=== PATIENT | female | born 1960 | race Caucasian/White ===

== ENCOUNTER 2025-09-30 09:00 | Outpatient (REF) | payer OTHER, SELFPAY ==
--- OUTSIDE RECORDS SUMMARY | 2025-04-03 06:00 | XMS_ITS ---
Author Organization [facility] Address [address] [place] [address] Care Team Providers Care Test Deck Supervisor Name Role Phone Gail Morrison Primary Care Provider [phone] REASON FOR VISIT trouble breathing Encounters Encounter Location Date Provider Diagnosis [facility] [address] [place] [address] 04/03/2025 Gail Morrison Plan Of Treatment No Information Progress Notes * Apryl DAYDOB: (65 yo F)Acc No.[id number]:04/03/2025 Progress Note Patient: Apryl Bhatia Provider: Fabienne Morrison MD :1960 A ge:65 Y S ex:Female Date:04/03/2025 Address:[address], [place], [id number] Subjective: * Chief Complaints: * T rouble breathing * Electronic [place], [id number] on 09/30/2025 at 07:37 AM [facility] Sign off status: Pending * Provider: Fabienne Morrison MD Date: 0 04/03/2025 Generated for Kristy leblanc/Carmel/Ramonita on: 11/30/2024 07:37 AM MST
--- OUTSIDE RECORDS SUMMARY | 2025-05-06 05:30 | XMS_ITS ---
Author Organization [facility] Address [address] [place] [address] Care Team Providers Care Line Department Supervisor Name Role Phone Gail Morrison Primary Care Provider [phone] REASON FOR VISIT lab review Encounters Encounter Location Date Provider Diagnosis [facility] [address] [place] [address] 05/06/2025 Gail Morrison Plan Of Treatment No Information Progress Notes * Apryl DAYDOB: [birth year] (65 yo F)Acc No.[id number]:05/06/2025 Patient: Apryl Bhatia Provider: Fabienne Morrison MD :1960 A ge:65 Y S ex:Female Date:05/06/2025 Address:[address], [place], [id number] Subjective: * Chief Complaints: * L ab review * Electronic [place], [id number] on 09/30/2025 at 07:38 AM [facility] Sign off status: Pending * Provider: Fabienne Morrison MD Date: 0 05/06/2025 Generated for Kristy leblanc/Carmel/Ramonita on: 11/30/2024 07:38 AM [facility]
[2025-09-30 09:12] LABS: MANUAL DIFF FLAG NO
--- OUTSIDE RECORDS SUMMARY | 2025-09-30 09:38 | XMS_ITS | Patient Health Record ---
Author Organization [facility] Address [address] [facility] [address] [place] [address] Care Team Providers Care Scientist/Engineer Name Role Phone Gail Morrison Primary Care Provider Erica Kendrick Unavailable [phone] Anca Urrutia Unavailable [phone] Allergies No Known Allergies Results Component Value Reference Range Notes Coccidioides Abs, IgG/IgM, E IA (L) ([id number]) Reviewed date:04/27/2025 11:20:34 AM Interpretation:Negative Performing Lab: Notes/Report: Coccidioides Ab, IgG, EIA 0.3 Negative <1.0 Indeterminate 1.0-1.4 Positive >1.4 Coccidioides Ab, IgM, EIA 0.3 Positive >1.4 Negative <1.0 Indeterminate 1.0-1.4 Reason For Referral Reason 04/09...1st // Explain ed in detail the reason for referral, the health benefits and potential consequences of missing this specialist appointment. Pt advised to contact us if he/she does not hear about appt to see specialist in the next 2 weeks Please fax over consult notes to [phone] Diagnosis 1 COPD exacerbation (J 44.1) [facility] Referring Provider First Name Gail Referring Provider Last Name Tamiko Referring Provider [facility] Clinical Notes Roro Grewal 10:40:23 AM > Referral and MR faxed, a txt was sent to patient, PM [address], [address] [place] [address] Fax: Referrals: [phone] Stephanie 04/17/2025 12:29:17 PM > gildardo ring from office, referral rcvd. pt self sched 04/20 @ 1:45pm Referral Priority Routine Referral Appointment Date 04/20/2025 Medications Medication SIG (Take, Route, Frequency, Duration) Notes Start Date End Date Status Nortriptyline HCl 75 MG Capsule TAKE 1 CAPSULE BY MOUTH DAILY; Duration: 90 days Active Gabapentin 100 MG Capsule 1 capsule Orally Three times a day; Duration: 90 days 06/26/2024 Active Flonase Allergy Relief 50 MCG/ACT Suspension 1 spray in each nostril Nasally Once a day; Duration: 30 days 04/23/2025 Active Stiolto Respimat 2.5-2.5 MCG/ACT Aerosol Solution 2 puffs Inhalation Once a day 04/23/2025 Active Atorvastatin Calcium 20 MG Tablet TAKE 1 TABLET BY MOUTH DAILY; Duration: 90 Active Aspirin 81 81 MG Tablet Chewable 1 tablet Orally Once a day 06/26/2024 Active Albuterol Sulfate HFA 108 (90 Base) MCG/ACT Aerosol Solution 1 puff as needed Inhalation every 4 hrs 06/26/2024 Active Trelegy Ellipta 200-62.5-25 MCG/ACT Aerosol Powder Breath Activated INHALE 1 PUFF BY MOUTH DAILY; Duration: 60 days Not-Taking/PRN Immunizations Vaccine Route Administration Date Status Comme nts RSV ADULT (Abrysvo) 0.5 mL, 60 years and older Unknown 08/14/2024 Administered Social History Tobacco Use: Social History Observation Description Date Details (start date - stop date) Current Smoker NA - NA Social History Social Determinants of Healt h Social Info Question Answer Notes MA - SOGI Sexual Orientation Straight or H eterosexual (attracted to opposite sex) Gender Identity Female Advance Directive [facility] complies with p atients' wishes concerning extent of care. Do you have an advance directive? Yes, but a copy has not been presented (debbie Ledbetter no se hubbard presentado brayden copia) MA - Smoke/Tobacco Exposure: No MA - Drug Screening Have you used drugs other than those for medical reasons in the past 12 months? Yes Heroin? No Cocaine? No Are you in a treatment program? No MA - Occupational History Current employment or previo us employment: Unemployed During your work history, have you ever been exp osed to: Indicate yes/no Metals No Dust or Fibers No Chemicals No Fumes No Radiation No Biologic Agents No Loud noise, vibration, extreme heat or cold No MA - Oral and Written Communication Needs Do you have any of these disabilities? Hearing Right ear Literacy Needs Level of education [employer] Completed high school MA - SDOH Screenings Date 05/06/2025 Homeless No Kinta No MA - Health Literacy Is medical informat ion ever difficult for you to understand? No Do you ever ask family/friends to help you under stand medical information? No Sexual History: Social Info Question Answer Notes SOGI Sexual Orientation: Straight or Heterosex ual Gender Identity: Female Sexual History Had sex in the past 12 months (vaginal, oral, or anal)? No Have you ever had a Sexually transmitted disease ? No Drugs/Alcohol: Social Info Question Answer Notes Drugs Have you used drugs other than those for medical reasons in the past 12 months? Yes Marijuana? Yes Drug/Alcohol: Social Info Question Answer Notes AUDIT-C (Standard) Did you have a drink containing alcohol in the past year? No Points 0 Interpretation Negative Tobacco Use: Social Info Question Answer Notes Tobacco Control (Standard) Tobacco use: Current smoker How often do you smoke cigarettes? Every day How many cigarettes a day do you smoke? 11-20 How soon after you wake up do you smoke your first cigarette? 6-30 minutes Are you interested in quitting? Thinking about quitting Additional Findings: Tobacco user Modera te cigarette smoker (10-19 cigs/day) Completed Date 06/26/2024 Problems Problem Type SNOMED Code ICD Code Onset Dates Problem Status W/U Status Risk Notes Problem Tobacco use (936541686) Tobacco use (Z72.0) 05/06/20 25 Active confirmed Problem Solitary nodule of lung (833146670) Lung nodule (R91.1) Active confirmed Problem Anxiety disorder (977605702) Anxiety disorder, unspecified (F41.9) Active confirmed Problem Peripheral artery disease (850397867) Peripheral artery disease (I73.9) Active confirmed Problem Chronic obstructive lung disease (22166087) COPD without exacerbation (J44.9) Active confirmed Problem Hyperlipidemia (91680208) Other hyperlipidemia (E78.49) Active confirmed Vital Signs Heart Rate 93 /min 04/23/2025 Vital Signs com pleted, demographics/pharmacy verified by: Albania Jacobs 04/23/2025 08:49:45 AM MST > Temperature 98.0 degrees Fahrenheit 04/23/2025 Vital Signs completed, demographics/pharmacy verified by: Albania Jacobs 04/23/2025 08:49:45 AM MST > Respiratory Rate 18 /min 04/23/2025 Vital Signs completed, demographics/pharmacy verified by: Albania Jacobs 04/23/2025 08:49:45 AM MST > Blood pressure diastolic 71 mm Hg 04/23/2025 Vital Signs complete d, demographics/pharmacy verified by: Albania Jacobs 04/23/2025 08:49:45 AM MST > Oximetry 92 % 04/23/2025 Vital Signs com pleted, demographics/pharmacy verified by: Albania Jacobs 04/23/2025 08:49:45 AM MST > Height-cm 172.72 cm 04/23/2025 Vital Signs com pleted, demographics/pharmacy verified by: Alabnia Jacobs 04/23/2025 08:49:45 AM MST > Weight-kg 38.67 kg 04/23/2025 Vital Signs com pleted, demographics/pharmacy verified by: Albania Jacobs 04/23/2025 08:49:45 AM MST > Height 68 in 04/23/2025 Vital Signs com pleted, demographics/pharmacy verified by: Albania Jacobs 04/23/2025 08:49:45 AM MST > Blood pressure systolic 146 mm Hg 04/23/2025 Vital Signs complete d, demographics/pharmacy verified by: Albania Jacobs 04/23/2025 08:49:45 AM MST > Weight 85 lbs 4 oz lbs 04/23/2025 Vital Signs completed, demographics/pharmacy verified by: Albania Jacobs 04/23/2025 08:49:45 AM MST > BMI 12.96 kg/m2 04/23/2025 Vital Signs com pleted, demographics/pharmacy verified by: Albania Jacobs 04/23/2025 08:49:45 AM MST > Encounters Encounter Location Date Provider Diagnosis [facility] [address] [place] [address] 03/31/2025 [facility] [address] [place] [address] 03/31/2025 Gail Morrison Neuropathic pain M79 .2 [facility] [address] [place] [address] 08/07/2025 Erica Kendrick [facility] [address] [facility] [place] [address] [facility] [address] [facility] [place] [address] [facility]25 [facility] [address] [place] [place] [place] [address] 09/22/2025 [facility] [address] [facility] [place] [address] 04/23/2025 Gail Morrison Tobacco use Z72.0 ; Encounter for tobacco use cessation counseling Z71.6 ; History of COPD Z87.09 ; Neuropathic pain M79.2 ; Lung nodule R91.1 and Post-nasal drip R09.82 [facility] [address] [place] [address] 04/02/2025 Gail Morrison COPD exacerbation J44.1 [facility] [address] [place] [address] 05/06/2025 Gail Morrison Lung nodule R91.1 ; Tobacco use Z72.0 and Encounter for tobacco use cessation counseling Z71.6 Assessments Encounter Date Diagnosis (ICD Code) Assessment Notes Treatment Notes Treatment Clinical Notes Section Notes 03/31/2025 Neuropathic pain (ICD-10 - M79.2) 05/06/2025 Lung nodule (ICD-10 - R91.1) CXR showed irregular left apicalpleural thickening associated with mild left apical infiltrate. It also showed subcentimeter dense nodules in the right upper lobe suggesting probable calcified granuloma. CT chest was recommended. Valley fever results are negative. Pt got CT chest done today. She will follow with her director of industrial relations. 04/23/2025 Tobacco use (ICD-10 - Z72.0) 04/23/2025 Encounter for tobacco use cessation counseling (ICD-10 - Z71.6) 04/02/2025 COPD exacerbation (ICD-10 - J44.1) Since patient is short of breath and has Oxygen saturation ranging 90-91% at rest , will send patient to ER 04/23/2025 History of COPD (ICD-10 - Z87.09) Pt has been following with Local [employer]. She will be getting CT chest ordered by her Local Truck Driver. 05/06/2025 Tobacco use (ICD-10 - Z72.0) 05/06/2025 Encounter for tobacco use cessation counseling (ICD-10 - Z71.6) 04/23/2025 Neuropathic pain (ICD-10 - M79.2) 04/23/2025 Lung nodule (ICD-10 - R91.1) CXR showed irregular left apicalpleural thickening associated with mild left apical infiltrate. It also showed subcentimeter dense nodules in the right upper lobe suggesting probable calcified granuloma. CT chest was recommended. 04/23/2025 Post-nasal drip (ICD-10 - R09.82) Plan Of Treatment Pending Test Test Name Order Date CMP14+CBC/D/Plt (L) ([id number]) 04/23/2025 Insurance Providers Payer Name Payer Address Payer Phone Subscriber Number Group Number Insured Name Patient Relationship to Insured Coverage Start Date Coverage End Date [facility] [address] [place], [place] [id number] Apryl Day Self - patient is the insured 4 [facility] [address] [place] [address] [id number] Cristy Dayred Self - patient is the insured 4 Medicare Part A and B MM [address] [place] [address] [phone] [id number] Cristy Dayred Self - patient is the insured 4 [employer] [facility] [address] [place] [address] [phone] [id number] Cristy Dayred Self - patient is the insured Medical (General) History Medical History History ICD Code COPD Damaged Nerves peripheral artery disease Surgical History Surgery Date(Month/Year) tubal ligation 1989 1979
[2025-09-30 10:01] LABS: Hematocrit 39.5 % (37.0-47.0); Hemoglobin 12.8 g/dl (12.0-16.0); Imm Gran Abs Auto 0.02 X10*3/uL (0.00-0.03); Imm Gran Pct Auto 0.2 % (0.0-0.4); Lymphocytes Absolute Auto 2.4 X10*3/uL (1.2-4.9); Mean Corpuscular HGB Conc 32.4 g/dl (31.0-35.0); Mean Corpuscular Hemoglobin 29.8 pg (27.0-33.0); Mean Corpuscular Volume 92.1 fL (80.0-98.0); NRBC Abs Auto 0.000 X10*3/uL (0.0-0.012); NRBC Pct Auto 0.0 /100WBC (0.0-0.2); Platelet Count 445 X10*3/uL (160-400); Red Blood Count 4.29 X10*6/uL (4.20-5.50); White Blood Count 9.4 X10*3/uL (4.8-10.8)
[2025-09-30 11:24] LABS: Alanine Aminotransferase 8 U/L (0-31); Albumin Level 3.9 g/dL (3.5-5.0); Alkaline Phosphatase 84 U/L (39-117); Anion Gap 11 (12-20); Aspartate Amino Transferase 15 U/L (5-31); Blood Urea Nitrogen 13 mg/dL (9-16); Calcium 9.7 mg/dL (8.4-10.2); Carbon Dioxide 29 mmol/L (22-29); Chloride 104 mmol/L (96-108); Cholesterol 146 mg/dL (<200); Estimated Glomerular Filt Rate > 60; HDL Cholesterol 69 mg/dL (>40); Potassium 3.9 mmol/L (3.3-5.1); Sodium 140 mmol/L (135-145); Total Protein 7.9 g/dL (6.5-8.0); Triglycerides 76 mg/dL (<150)
[2025-09-30 11:48] LABS: Reflex LDLD? No
== END 2025-09-30 09:01 | disposition home or self-care (01) ==
LOC: HO.LAB 09:00
PROVIDERS: PCP Student in an Organized Health Care Education/Training Program; Visit Provider Student in an Organized Health Care Education/Training Program
DX: Z00.00 Encounter for general adult medical examination without abnormal findings (principal); Z13.1 Encounter for screening for diabetes mellitus; E78.5 Hyperlipidemia, unspecified
CPT/HCPCS: 36415; 80053; 80061; 83036; 85025

== ENCOUNTER → 2025-10-21 09:18 | Outpatient (AMB) | payer OTHER, SELFPAY ==
--- OUTSIDE RECORDS SUMMARY | 2025-04-03 06:00 | XMS_ITS ---
Author Organization [facility] Address [address] [place] [address] Care Team Providers Care Seamless Tube Drawer Name Role Phone Gail Morrison Primary Care Provider REASON FOR VISIT trouble breathing Encounters Encounter Location Date Provider Diagnosis [facility] [address] [place] [address] 04/03/2025 Gail Morrison Plan Of Treatment No Information Progress Notes * Apryl DAYDOB: (65 yo F)Acc No.[id number]:04/03/2025 Progress Note Patient: Apryl Bhatia Provider: Fabienne Morrison MD :1960 A ge:65 Y S ex:Female Date:04/03/2025 Address:[address], [place], [id number] Subjective: * Chief Complaints: * T rouble breathing * Electronic [place], [id number] on 10/21/2025 at 08:24 AM [facility] Sign off status: Pending * Provider: Fabienne Morrison MD Date: 0 04/03/2025 Generated for Kristy leblanc/Carmel/Ramonita on: 1 12/22/2024 08:24 AM [facility]
--- OUTSIDE RECORDS SUMMARY | 2025-05-06 05:30 | XMS_ITS ---
Author Organization [facility] Address [address] [place] [address] Care Team Providers Care Geophysical Prospecting Surveyor Name Role Phone Gail Morrison Primary Care Provider REASON FOR VISIT lab review Encounters Encounter Location Date Provider Diagnosis [facility] [address] [place] [address] 05/06/2025 Gail Morrison Plan Of Treatment No Information Progress Notes * Apryl DAYDOB: [birth year] (65 yo F)Acc No.[id number]:05/06/2025 Patient: Apryl Bhatia Provider: Fabienne Morrison MD :1960 A ge:65 Y S ex:Female Date:05/06/2025 Address:[address], [place], [id number] Subjective: * Chief Complaints: * L ab review * [place], [id number] on 10/21/2025 at 08:25 AM [facility] Sign off status: Pending * Provider: Fabienne Morrison MD Date: 0 05/06/2025 Generated for Kristy leblanc/Carmel/Ramonita on: 12/22/2024 08:25 AM [facility]
[2025-10-21 09:24] VITALS: BP 110/68; PULSE 108; O2SAT 97; BMI 14.5
--- NOTE | 2025-10-21 09:24 | MHC.OFFVIS ---
Vital Signs 10/21/25 09:24 Height 5 ft 8 in Weight 95 lb 8 oz BMI 14.5 BP 110/68 Blood Pressure Location Rt brachial Position Sitting Pulse 108 H Pulse Source Pulse Oximeter Pulse Oximetry (%) 97 Oxygen Delivery Method Nasal Cannula Oxygen Flow Rate 1 Intake Visit Reasons: COPD Allergies Seasonal Allergies Allergy (Severe, Verified 10/21/25 09:29) Sneezing HPI HPI COPD: Details: Apryl is a pleasant 65 year old female former 40 pack year smoker, quit 08/29 presenting for pulmonology follow-up for a recently diagnosed mycobacterial lung infection and management of severe COPD. She was recently in [place] where her PCP referred her to the emergency room for worsening COPD symptoms, where a chest X-ray revealed a nodule and a mass. She subsequently underwent bronchoscopy which was negative for malignancy but showed a MAC infection. The patient was hospitalized in August and was treated with IV antibiotics for one week, followed by three weeks of IV antibiotics in a rehab facility. She was then transitioned to a three-drug oral regimen of azithromycin, ethambutol, and rifampin for a presumed MAC infection and has been tolerating them well for two months. She was under the care of pulmonary in [place], Toshia León NP as well as [facility] in [place]. Of note, patient with h/o childhood Valley fever and recent labs negative. The patient was diagnosed with COPD a couple of years ago, and spirometry in July of this year showed severe COPD. She has a history of recurrent pneumonia, with two episodes last year. She began using supplemental oxygen following her recent hospitalization and is on 1.5 L/min at home and 1 L/min via a portable device, reporting oxygen saturations as low as 86-87% prior to her hospitalization. The patient has a smoking history of one pack per day since age 17 but quit on August 17. She experienced significant weight loss, with her weight dropping to 83 pounds during her illness, and is now using nutritional shakes. She denies a history of kidney or liver problems, but recent labs from her PCP showed a slightly elevated platelet count and will have subsequent labs to further evaluate. Diagnosis of Chronic Obstructive Pulmonary Disease (COPD) a couple of years ago; a pulmonary function test in April 2023 confirmed severe COPD. - History of recurrent pneumonia, including two episodes in the past year (September and December). - Tobacco use history of one pack per day since age 17; quit smoking on August 17. - Recent emergency room visit in [place] led to a chest X-ray that revealed a nodule and a mass. - Bronchoscopy results were non-cancerous but showed a MAC infection. - A CT scan in May showed a 2.4 x 1.7 x 1.5 cm right upper lobe lesion and a large left upper lobe cavitary lesion. - PET scan was performed in June, prior to starting antibiotic therapy noting FDG activity and enlarging lesions. - Initiated supplemental oxygen therapy in August. - Current medications include Trelegy, Singulair, albuterol nebulizer, and a three-drug regimen for MAC infection. - No history of occupational exposures to chemicals, factory work, or asbestos. [facility] Medical History (Updated 10/21/25 @ 17:15 by Johanny Perez NP) COPD (chronic obstructive pulmonary disease) Social History Alcohol intake: never Patient Tobacco Use Status: Former Tobacco user Tobacco use type: Cigarette e-Cigarette/Vaping Use: Never Used Current occupational status: disabled Cognitive needs: No Hearing needs: No Vision needs: Yes Review of Systems Narrative Const Denies chills, Denies excessive sweating, Denies fever(s), Denies headache(s) and Denies night sweats Eyes Denies dry eyes, Denies irritation and Denies itchy eyes ENT Reports Normal hearing present, Denies headache(s), Denies nasal congestion, Denies nasal discharge, Denies post nasal drip and Denies sore throat Card Denies chest pain, Denies chest pain at rest, Denies chest pain with activity, Denies claudication, Denies leg edema, Denies orthopnea and Denies paroxysmal nocturnal dyspnea Resp Denies chest congestion, Denies excessive phlegm production, Denies pain on inspiration, Denies pain with cough and Denies stridor Musc Denies myalgias Neuro Reports Normal hearing present and Denies headache(s) Endo Denies excessive sweating Andrews/Lymph Denies lymphadenopathy Aller/Immun Denies itchy eyes and Denies seasonal rhinorrhea Physical Exam Exam Exam: Vital Signs: Last Vital Signs Pulse 108 H 10/21/25 09:24 BP 110/68 10/21/25 09:24 Pulse Ox 97 10/21/25 09:24 Oxygen Delivery Method Nasal Cannula 10/21/25 09:24 Oxygen Flow Rate 1 10/21/25 09:24 BMI result Body Mass Index 14.5 Const General: cooperative, healthy appearing, comfortable, no acute distress, well developed and alert Orientation/consciousness: patient oriented x3 HEENT Head: Yes normal to inspection, Yes normocephalic and Yes atraumatic Ears: hearing grossly normal bilaterally and external ears normal Eyes General: appearance normal, both eyes and all related structures Eyelids: Yes eyelids normal Sclerae: sclerae normal EOM: EOMs intact bilaterally Neck Neck: Yes normal visual inspection and Yes no lymphadenopathy Lymphatic: no lymphadenopathy noted Chest Chest palpation & inspection: normal inspection of the chest Resp Effort & Inspection: normal respiratory effort, able to speak in complete sentences, no audible wheezes, no cough, no stridor, not tachypneic, no tripod positioning and no use of accessory muscles Auscultation: diminished lung sounds Cardio Jugular venous distension: no JVD Rate: regular rate Rhythm: regular rhythm Skin Other: warm, dry General skin exam: no rashes or lesions noted Neuro General: patient oriented x3 Cranial nerves: Yes Normal hearing present Cognition (Neuro): normal cognition Gait exam (Neuro): Normal gait present Extrem General: Yes normal to inspection, Yes capillary refill normal, Yes no clubbing, cyanosis or edema and Yes no pedal edema Psych Appearance: grossly normal and well kempt Speech and movement: Normal speech and movement present and Clear speech present Affect: normal affect Attitude: cooperative Thought process: Normal thought process present Thought content: Normal thought content present Insight: Good insight present (Psych) Judgement: Good judgement present (Psych) Assessment & Plan Assessment & Plan (1) 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: Code(s): A31.0 - Pulmonary mycobacterial infection Category: Medical (2) COPD (chronic obstructive pulmonary disease): Code(s): J44.9 - Chronic obstructive pulmonary disease, unspecified Category: Medical Qualifiers: COPD type: unspecified COPD Qualified Code(s): J44.9 - Chronic obstructive pulmonary disease, unspecified (3) Hypoxia: Code(s): R09.02 - Hypoxemia Category: Medical (4) Multiple pulmonary nodules: Code(s): R91.8 - Other nonspecific abnormal finding of lung field Category: Medical Plan Reviewed the patient's complex history regarding her recent diagnosis of a mycobacterial lung infection, which is being treated with a year-long, three-drug regimen. Discussed the importance of continued medication adherence and monitoring for potential side effects. 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 Labs will be monitored to follow kidney and liver function.The patient is tolerating well, approximately two months into her treatment course. She will continue this regimen with the goal of completing a one-year course, however current regimen frequency and dosing falls outside standard dosing. Will reach out to prescribing office to confirm dosing and pathology. An urgent chest CT scan without contrast will be ordered to re-evaluate the size of her lung nodules and cavitary lesions and assess for response to therapy. The patient's dyspnea is relatively stable, and her cough has improved but persists. She will continue her current maintenance therapy with Trelegy and Singulair, along with her albuterol nebulizer for rescue. A prescription for a flutter valve will be sent to aid in airway clearance, to be used twice daily after nebulizer treatments. She will continue to use supplemental oxygen as needed to maintain saturations above 90% and will monitor her levels at home. No repeat pulmonary function testing is needed at this time. The patient successfully quit smoking on August 17. The importance of continued abstinence from smoking was emphasized, particularly for healing her current infection and for her overall lung health. The patient has experienced significant weight loss, with the lowest weight 83 pounds during her illness, and is using nutritional supplements. A referral will be placed to a supervisor rice milling to address her nutritional status, although this may need to be formally initiated by her primary care provider for insurance purposes. We scheduled a follow-up appointment for the end of November to review the results of her imaging. All questions were answered and patient is in agreement of plan. Patient Instructions - Continue taking your three antibiotic pills (azithromycin, ethambutol, rifampin) every day as prescribed for your lung infection. - Continue using your Trelegy inhaler and taking your Singulair pill daily. - We are prescribing a flutter valve device. Use this device twice a day after using your nebulizer to help clear mucus. Blow into it three times, then cough three times. - Please go to [facility] for a walk-in EKG (heart tracing) within the next few days. - You will receive a call to schedule a CT scan of your chest. We are ordering this urgently. If you do not receive a call within one week, please contact our office. - It is very important that you continue to not smoke. - Use your oxygen at home to keep your oxygen level above 90%. If it often drops into the 80s or your breathing gets worse, please call our office. - Schedule an appointment to see your eye doctor. - We have scheduled a follow-up appointment for you at the end of November to go over your test results. Patient was informed and verbally consented to the use of an ambient scribe for clinic note documentation during this visit. 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
--- OUTSIDE RECORDS SUMMARY | 2025-10-21 10:25 | XMS_ITS | Patient Health Record ---
Author Organization [facility] Address [address] [place] [address] Care Team Providers Care Forging Die Sinker Name Role Phone Gail Morrison Primary Care Provider Erica Kendrick Unavailable [phone] Anca Urrutia Unavailable [phone] Allergies No Known Allergies Results Component Value Reference Range Notes Coccidioides Abs, IgG/IgM, E IA (L) ([id number]) Reviewed date:04/27/2025 11:20:34 AM Interpretation:Negative Performing Lab: [...] weeks Please fax over consult notes to [phone] Diagnosis 1 COPD exacerbation (J 44.1) [facility] Serena actice Referring Provider First Name Gail Referring Provider Last Name Tamiko Referring Provider Speciality Family Pra ctice [facility] Special[facility] Pul[facility] Clinical Notes Roro Grewal 10:40:23 AM > Referral and MR faxed, a txt was sent to patient, PM [phone], [address] [place] [address] Fax: Referrals: [phone] Stephanie 04/17/2025 12:29:17 PM > gildardo ring [...] opposite sex) Gender Identity Female Advance Directive [facility] complies with p atients' wishes concerning extent [...] - SDOH Screenings Date 05/06/2025 Homeless No Simpson No MA - Health Literacy Is medical [...] W/U Status Risk Notes Problem Tobacco use (160397399) Tobacco use (Z72.0) 05/06/20 25 Active confirmed Problem Solitary nodule of lung (650245498) Lung nodule (R91.1) Active confirmed Problem Anxiety disorder (176830845) Anxiety disorder, unspecified (F41.9) Active confirmed Problem Peripheral artery disease (431904378) Peripheral artery disease (I73.9) Active confirmed Problem Chronic obstructive lung disease (78632179) COPD without exacerbation (J44.9) Active confirmed Problem Hyperlipidemia (63782997) Other hyperlipidemia (E78.49) Active confirmed Vital Signs [...] Albania Jacobs 04/23/2025 08:49:45 AM MST > Weight-kg [...] > Encounters Encounter Location Date Provider Diagnosis [facility] [address] [place] [address] 03/31/2025 [facility] [address] [place] [address] 03/31/2025 Gail Morrison Neuropathic pain M79 .2 [facility] [address] [facility] [place] [address] 08/07/2025 Erica Kendrick [facility] [address] [place] [facility] [place] [address] [facility] [address] [place] [facility] [place] [address] 09/[facility]25 [facility] [address] [place] [facility] [place] [address] 09/22/2025 [facility] [address] [place] [facility] [place] [address] 04/23/2025 Gail Morrison Tobacco use Z72.0 ; Encounter for tobacco use cessation counseling Z71.6 ; History of COPD Z87.09 ; Neuropathic pain M79.2 ; Lung nodule R91.1 and Post-nasal drip R09.82 [facility] [address] [facility] [place] [address] 04/02/2025 Gail Morrison COPD exacerbation J44.1 [facility] [address] [facility] [place] [address] 05/06/2025 Gail Morrison Lung nodule R91.1 ; Tobacco use Z72.0 and Encounter for tobacco use cessation counseling Z71.6 Assessments Encounter Date Diagnosis (ICD Code) Assessment Notes Treatment Notes Treatment Clinical Notes Section Notes 05/06/2025 Lung nodule (ICD-10 - R91.1) CXR showed irregular left apicalpleural thickening associated with mild left apical infiltrate. It also showed subcentimeter dense nodules in the right upper lobe suggesting probable calcified granuloma. CT chest was recommended. Valley fever results are negative. Pt got CT chest done today. 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 04/23/2025 Tobacco use (ICD-10 - Z72.0) 04/23/2025 Encounter for tobacco use cessation counseling (ICD-10 - Z71.6) 04/02/2025 COPD exacerbation (ICD-10 - J44.1) Since patient is short of breath and has Oxygen saturation ranging 90-91% at rest , will send patient to ER 03/31/2025 Neuropathic pain (ICD-10 - M79.2) 04/23/2025 History of COPD (ICD-10 - Z87.09) Pt has been following with Wood Inspector. She will be getting CT chest ordered by her Wood Inspector. 05/06/2025 Tobacco use (ICD-10 - Z72.0) 05/06/2025 [...] Test Test Name Order Date CMP14+CBC/D/Plt (L) ([id number]) 04/23/2025 Insurance Providers Payer Name Payer Address Payer Phone Subscriber Number Group Number Insured Name Patient Relationship to Insured Coverage Start Date Coverage End Date MED FORMERLY [facility] [address] [place], [place] [id number] Apryl Day Self - patient is the insured 4 [employer] [address] [place] [address] [id number] Cristy Dayred Self - patient is the insured 4 Medicare Part A and B MM [address] [place] [address] [phone] [id number] Cristy Dayred Self - patient is the insured 4 [employer] [facility] [address] [place] [address] [phone] [id number] Apryl Day Self - patient is the insured Medical (General) History Medical History History ICD Code COPD Damaged Nerves peripheral artery disease Surgical History Surgery Date(Month/Year) tubal ligation 1989 1979
== END ==
LOC: HO.HPSW 09:19
PROVIDERS: PCP Student in an Organized Health Care Education/Training Program; Referring Provider Student in an Organized Health Care Education/Training Program; Visit Provider Nurse Practitioner Family
DX: A31.0 Pulmonary mycobacterial infection (principal); J44.9 Chronic obstructive pulmonary disease, unspecified; R09.02 Hypoxemia; R91.8 Other nonspecific abnormal finding of lung field
CPT/HCPCS: 99205

== ENCOUNTER 2025-10-27 | Outpatient (REF) | payer OTHER, SELFPAY ==
--- NOTE | ~2025-10-27 | CT_ITS ---
EXAMINATION: CT CHEST WITHOUT IV CONTRAST INDICATION: A31.0 - Pulmonary mycobacterial infection COMPARISON: There are no prior studies available for comparison. TECHNIQUE: Helical CT scan of the chest was performed without intravenous contrast. Coronal and sagittal reformatted images were generated and reviewed. This CT exam was performed with one or more of the following dose reduction techniques: automated exposure control, adjustment of the mA and/or kV according to patient size, use of iterative reconstruction technique. DLP: 146 mGy-cm CHEST: THYROID: The thyroid is unremarkable. LUNGS: There is moderate to severe emphysema. There are thick-walled cavitary lesions containing gas in both upper lobes. On the right, this measures at least 2.3 x 2.0 x 1.7 cm. On the left, this measures at least 5.9 x 4.3 x 5.2 cm. There is extensive airspace opacity in the right upper lobe with associated calcifications. Similar, but milder changes are noted on the left. Smaller subcentimeter nodular opacities are identified in the right lower lobe (series 6, image 126) and in the left lower lobe (series 6, images 107-128). MEDIASTINUM: There is no mediastinal lymphadenopathy. TOD: There is fullness in both hilar regions which may represent lymphadenopathy. Evaluation is limited by lack of intravenous contrast material. CARDIOVASCULATURE: The heart is normal in size. There is no pericardial effusion. The thoracic aorta measures up to 3.3 cm in diameter. DEGREE OF CORONARY CALCIFICATION: severe PLEURA: There is no pleural effusion. There is a small loculated collection of gas at the left lung apex. MAIN AIRWAYS: The mainstem bronchi and proximal branches are patent. AXILLA: There is no axillary lymphadenopathy. BONES AND SOFT TISSUES: Unremarkable UPPER ABDOMEN: The visualized portions of the liver, spleen, and adrenals have an unremarkable unenhanced appearance. There is possible left hydronephrosis. CT/CT chest wo IV con IMPRESSION: 1. Moderate to severe emphysema. Thick-walled cavitary lesions in both upper lobes are compatible with the patient's given history of mycobacterial infection. Neoplasm is not entirely excluded, however. Comparison with prior outside studies is recommended. 2. Fullness of the hilar regions, suggestive of lymphadenopathy. Number 3. Possible left hydronephrosis. Ultrasound correlation is suggested. Electronically signed by: Dale Cervantes MD 10/27/2025 11:52 AM JONNA
--- NOTE | 2025-10-27 10:15 | ECG_ITS ---
Test Reason : ;preop Blood Pressure : */* mmHG Vent. Rate : 105 BPM Atrial Rate : 105 BPM P-R Int : 116 ms QRS Dur : 98 ms QT Int : 344 ms P-R-T Axes : 83 78 59 degrees QTcB Int : 454 ms Sinus tachycardia Biatrial enlargement Minimal voltage criteria for LVH, may be normal variant ( [place] product ) Abnormal ECG No previous ECGs available Referred By: Johanny Perez Electronically Signed By: CORONA STONE MD
== END 2025-10-27 00:01 | disposition home or self-care (01) ==
LOC: HO.CT
PROVIDERS: PCP Student in an Organized Health Care Education/Training Program; Visit Provider Nurse Practitioner Family
DX: Z01.818 Encounter for other preprocedural examination (principal); A31.0 Pulmonary mycobacterial infection; R09.02 Hypoxemia; R91.8 Other nonspecific abnormal finding of lung field
CPT/HCPCS: 71250; 93005

== ENCOUNTER → 2025-10-27 10:15 | Outpatient (BNV) | payer OTHER, SELFPAY | PROVIDERS: PCP Student in an Organized Health Care Education/Training Program; Visit Provider Internal Medicine Cardiovascular Disease | DX: I51.7 Cardiomegaly (principal); R00.0 Tachycardia, unspecified | CPT/HCPCS: 93010 ==

== ENCOUNTER → 2025-10-27 10:27 | Outpatient (BNV) | payer OTHER, SELFPAY | PROVIDERS: PCP Student in an Organized Health Care Education/Training Program; Visit Provider Radiology Diagnostic Radiology | DX: J43.9 Emphysema, unspecified (principal) | CPT/HCPCS: 71250 ==